=== PATIENT | female | born 1975 | race Two or more races ===

== ENCOUNTER 2019-02-21 09:01 | Emergency (ER) | payer OTHER ==
[~2019-02-21] VITALS: Ht 160 cm; Wt 53.1 kg
[~2019-02-21 09:01] MED LIST: FEOSOL1 TAB PO; PERCOCET 5/3251 TAB PO; PRENATAL MULTI1 EACH
[2019-02-21] MEDS ORDERED: CARAFATE1 GM (09:25)
[2019-02-21] MEDS ORDERED: PROTONIX40 MG (09:25)
== END 2019-02-21 13:18 | disposition home or self-care (01) ==
LOC: ER 09:01
DX: R10.11 Right upper quadrant pain (principal)